=== PATIENT | female | born 1970 | race Caucasian/White ===

== ENCOUNTER → 2018-09-21 | Outpatient (CLI) | payer BC, MEDICARE ==
[2018-09-21 11:10] VITALS: BP 156/96; PULSE 84; RESP 16; TEMP 98.3; BMI 35.9
--- NOTE | 2018-09-21 11:37 | P.GSHP ---
History of Present Illness H&P Date: 09/21/18 Chief Complaint: nodule under right arm Rebecca is a 47-year-old white female who states approximately 5 months ago she noted an area of nodularity under her right arm. She feels that this has increased slightly in size. She has had a bilateral mammogram as well as an ultrasound of the right axilla which did not show anything of concern. These were performed on Aug 05 2018. She does fill discomfort under her right arm which radiates into her upper arm and into her upper outer quadrant of the breast. The patient questioned whether she felt some nodularity in the breast as well however this seems to have dissipated. She does not have any swollen lymph nodes anyplace else not in the cervical area nor in the groin. She has no history of any trauma or infection in the right upper extremity. She has no history of any fever or chills. She has not been treated with any antibiotics. The patient is to 3 cups of coffee in the morning. She drinks pop in the afternoon. She does not smoke she is not exposed to secondhand smoke. She has chocolate occasionally. She does not take any hormones she is not on control pills. The pain is not cyclical Family History: 1. Maternal grandmother: Breast cancer 2. Maternal great aunt: Lung cancer 3. Paternal grandmother: Lung cancer 4. Paternal grandfather: Colon cancer Hormonal History: menarche: 13 bresat fed: yes, first at 25 periods irregular for 6 months BCP: 7 years horomones: none Surgical history: 1. Tubal ligation 2. Appendectomy 3. 28 left knee surgeries, 2 right knee surgeries Medical History: 1. migraines Social History: smoke: none alcohol: social, monthly drugs: none - Constitutional Constitutional: Reports sweats - EENT Comment: wears glasses Ears: deny: decreased hearing, tinnitus Ears, nose, mouth and throat: Reports headache - Breasts Breasts: bilateral: as per HPI - Cardiovascular Cardiovascular: Denies chest pain, Denies shortness of breath - Respiratory Respiratory: Denies cough, Denies 7 - Gastrointestinal Gastrointestinal: Denies abdominal pain, Denies diarrhea, Denies nausea, Denies vomiting - Genitourinary (Female) Genitourinary: Denies dysuria, Denies hematuria - Menstruation Comment: irregular - Musculoskeletal Comment: bilateral knee and lower back arthritis - Integumentary Comment: multiple tattoos tenia - Neurological Neurological: Reports weakness - Psychiatric Psychiatric: Denies anxiety, Denies depression - Endocrine Endocrine: Reports fatigue, Denies weight change - Hematologic/Lymphatic Comment: none - Allergic/Immunologic Allergic/Immunologic: Reports as per HPI Surgical - Exam BMI 35.9 - General obese - Eyes normal ocular movement - ENT no hearing loss, no congestion - Neck no masses, trachea midline - Respiratory normal expansion, normal respiratory effort, clear to percussion, clear to auscultation - Cardiovascular Rhythm: regular Heart Sounds: normal: S1, S2 - Abdomen Abdomen: soft, non tender, no guarding, no rigid, no rebound - Integumentary ? fungal infection between breast - Neurologic no disoriented, no combative - Musculoskeletal uses canes to walk secondary to week knees - Psychiatric oriented to time, oriented to person, oriented to place, speech is normal, memory intact breast exam: Right breast: Multi-positional exam fibrocystic breast changes, no discrete dominant mass or nodule of concern Right axilla: No discrete adenopathy, there is an area of point tenderness which the patient brings to my attention however I'm unable to identify a discrete mass or nodule The patient has multiple tattoos over her right upper extremity extending onto her shoulder but there is no evidence of any infection or recent tattooing Left breast: Multi-positional exam fibrocystic changes, no discrete masses or nodules of concern Left axilla: No adenopathy of concern She has no cervical or groin adenopathy of concern She has no splenomegaly or hepatomegaly Results Mammogram and ultrasound report reviewed Assessment and Plan Assessment: Impression: 1. migraines 2. Right axillary pain/swelling 3. Fibrocystic breast changes 4. Family history of breast cancer 5. Family history cancer 6. Multiple knee surgeries 7. No evidence of malignancy 8. No cervical axillary or groin adenopathy of concern 9. Recent mammogram and ultrasound no evidence of malignancy Plan: 1. I will treat the patient with a course of antibiotics as this may reflect a superficial folliculitis 2. Repeat mammogram in 1 year 3. Follow-up in 2 weeks, if her symptoms have not resolved over request an ultrasound be performed while lying there to evaluate the area that she feels of concern Cc: Dr. Chris Zhao
== END | disposition home or self-care (01) ==
LOC: WWCWWP 10:55
PROVIDERS: ATTEND Surgery
DX: Z53.9 Procedure and treatment not carried out, unspecified reason (principal)

== ENCOUNTER → 2018-10-18 | Outpatient (CLI) | payer BC, MEDICARE ==
[2018-10-18 08:38] VITALS: BP 135/88; PULSE 71; RESP 16; TEMP 98.8; BMI 36.9
--- NOTE | 2018-10-18 09:12 | P.PN ---
Subjective Progress Note Date: 10/18/18 Principal diagnosis: Rebecca is a 47-year-old white female who initially presented on 09-21-18 with a 5 month complaint of increased nodularity in the right axilla. She also at that time was complaining of some discomfort in her right upper arm which extended into the right upper outer quadrant of the breast. The patient had had a mammogram and ultrasound in August 2018 which did not show anything of concern. The patient did not have any discrete mass noted on her examination of September 21. She was however started on an antibiotic. Despite the antibiotic the patient states that she does not think that the area has changed in size. The patient states that she continues to have tenderness which appears to be point tenderness area with radiation into the upper arm and lateral breast. She states she feels an actual nodule. She has had no fever or chills. She has no history of any trauma or infection. She does have tattoos on the right arm been no recent tattoos and no evidence of any infection related to the tattoos. The patient does drink 3 cups of coffee in the morning. She drinks pop in the afternoon. She is not exposed to secondhand smoke, she does not smoke. She has chocolate occasionally. The pain is not cyclical. she is not exposed medical history: 1. Migraines 2. Multiple bilateral knee surgeries Objective - Vital Signs Vital signs: Vital Signs Temp 98.8 F 10/18/18 08:33 Pulse 71 10/18/18 08:33 Resp 16 10/18/18 08:33 BP 135/88 10/18/18 08:33 Pulse Ox 95 10/18/18 08:33 Intake & Output 10/17/18 10/18/18 10/18/18 18:59 06:59 18:59 Weight 103.873 kg - Exam BMI 37 - Constitutional General appearance: Present: obese - EENT Eyes: Present: EOMI ENT: Present: hearing grossly normal - Neck Neck: Present: normal ROM - Respiratory Respiratory: bilateral: CTA - Cardiovascular Rhythm: regular Heart sounds: normal: S1, S2 - Integumentary Integumentary Comment(s): Multiple tattoos in the upper extremities, no evidence of any infection left axilla: Examination of the right axilla reveals no dominant masses or nodules of concern, no adenopathy of concern Examination however reveals tenderness over the latissimus dorsi edge of the muscle Left axilla: No adenopathy of concern, no tenderness Examination of the neck reveals no cervical adenopathy of concern No groin adenopathy of concern Integumentary: Present: normal turgor - Musculoskeletal Musculoskeletal: Present: gait normal - Psychiatric Psychiatric: Present: A&O x's 3, appropriate affect Assessment and Plan Assessment: Impression: 1. Migraines 2. Right axillary pain/swelling believed to be related to muscle/latissimus dorsi 3. Fibrocystic breast changes 4. Family history of breast cancer 6. Multiple knee surgeries 7. Musculoskeletal pain Plan: 1. At this time it is felt that the patient's pain is most likely related to musculoskeletal sources possibly related to walking her dogs and the dogs p ulling 2. No evidence of any cancer 3. The patient will try to decrease the dogs pulling when she walks 4. I discussed the fact that caffeine may exacerbate breast fibrocystic disease the patient will try to decrease her caffeine intake 5. Repeat bilateral axillary ultrasound in 6 months with physician exam at that time 5. Follow up sooner if the pain gets worse when the patient feels that the swelling gets larger Cc: Dr. Chris Zhao
== END | disposition home or self-care (01) ==
LOC: WWCWWP 08:20
PROVIDERS: ATTEND Surgery
DX: Z53.9 Procedure and treatment not carried out, unspecified reason (principal)

== ENCOUNTER → 2019-02-26 | Outpatient (CLI) | payer BC, MEDICARE ==
[~2019-02-26] MED LIST: REGADENOSON 0.4 MG/5 ML SYRINGE IV ONE
--- NOTE | 2019-02-26 10:46 | EST ---
EXERCISE STRESS DATE OF SERVICE: 02/26/2019 AGE: 48 SEX: Female HT: 66" WT: 240 pounds PROTOCOL: Lexiscan Cardiolite STAGE: DURATION OF EXERCISE: HEART RATE REST: 68 BLOOD PRESSURE REST: 110/80 MAXIMUM HEART RATE ACHIEVED: 105 MAXIMUM BLOOD PRESSURE: 120/74 85% MPHR: 100% MPHR: METS: INDICATIONS: Chest pain. CLINICAL INFORMATION: Baseline EKG shows sinus rhythm, normal axis, normal intervals. Patient was given intravenous Lexiscan as per protocol. Did not have chest pain or diagnostic ST-segment depression. CONCLUSIONS: 1. Negative stress test by EKG criteria. 2. Cardiolite portion of the stress test will be reported separately. MMODL / IJN: [id number] /
--- NOTE | 2019-02-26 11:27 | NM ---
EXAMINATION TYPE: NM stress lexiscan cardiolite DATE OF EXAM: 02/26/2019 COMPARISON: NONE HISTORY: Acute angina, chest pain TECHNIQUE: After the intravenous administration of 10.21 mCi Tc 99m Sestamibi - Cardiolite resting S PECT images acquired 50 minutes post injection. The patient received 0.4mg Lexiscan, 25.9 mCi Tc 99m Sestamibi - Stress images obtained [address] injection FINDINGS: Review of stress and rest SPECT images demonstrates no distinct perfusion abnormality. Exam is somew hat technically limited. Gated analysis shows normal wall motion with an estimated left ventricular e jection fraction of 63 %. IMPRESSION: Technically limited exam. No convincing pharmacologically induced left ventricular myocardial ischemi a
== END | disposition home or self-care (01) ==
LOC: RADNMMAIN 07:29
PROVIDERS: ATTEND Family Medicine
DX: I20.9 Angina pectoris, unspecified (principal)
CPT/HCPCS: 93017; 78452; A9500; J2785

== ENCOUNTER → 2019-06-17 | Outpatient (CLI) | payer BC, MEDICARE | END | disposition home or self-care (01) | DX: R22.31 Localized swelling, mass and lump, right upper limb (principal) ==

== ENCOUNTER → 2019-08-16 | Outpatient (CLI) | payer BC, MEDICARE ==
--- NOTE | 2019-06-20 10:53 | P.PN ---
Progress Note - Text Progress Note Date: 06/20/19 I have had a phone conversation with Rebecca regarding her ultrasound results. The patient states she still has some fullness under her arm. However at this time her appointment was canceled secondary to the montemayor virus concerns. She has been rescheduled for 1 month from now.
[2019-08-16 15:48] VITALS: BP 152/89; PULSE 80; RESP 18; TEMP 98.2
--- NOTE | 2019-08-16 16:21 | P.PN ---
Subjective Progress Note Date: 08/16/19 Principal diagnosis: adenopathy Rebecca is a 47-year-old white female who was last seen in October 2018. At that time she stated approximately 5 months prior to that she noted an area of nodularity under her right arm. She felt that this had increased slightly in size. She has had a bilateral mammogram as well as an ultrasound of the right axilla which did not show anything of concern. These were performed on Aug 05 2018. She had recent right axillary ultrasound performed on . This revealed multiple axillary lymph nodes. The largest on the right measured 1.2 cm and on the left measured 2 cm. No cortical thickening was seen in any of the nose. The impression was morphologically normal nonenlarged nonsuspicious bilateral axillary lymph nodes. She states that the area of fullness in her right axilla has not improved for the past year. She states that it feels larger to her and is uncomfortable. She has bilateral upper extremity tattoos but none of them have been had anything down for the past 2 years. She does not complain of adenopathy anyplace else. She does not feel anything of concern under her left arm. She does fill discomfort under her right arm which radiates into her upper arm and into her upper outer quadrant of the breast. The patient questioned whether she felt some nodularity in the breast as well however this seems to have dissipated. She does not have any swollen lymph nodes anyplace else not in the cervical area nor in the groin. She has no history of any trauma or infection in the right upper extremity. She has no history of any fever or chills. She has not been treated with any antibiotics. The patient 2 cups of coffee in the morning. She used to drink pop in the afternoon but has stopped this. She does not smoke she is not exposed to secondhand smoke. She has chocolate occasionally. She does not take any hormones she is not on control pills. The pain is not cyclical Family History: 1. Maternal grandmother: Breast cancer 2. Maternal great aunt: Lung cancer 3. Paternal grandmother: Lung cancer 4. Paternal grandfather: Colon cancer Hormonal History: menarche: 13 breast fed: yes, first at 25 periods irregular for 6 months BCP: 7 years horomones: none Surgical history: 1. Tubal ligation 2. Appendectomy 3. 28 left knee surgeries, 2 right knee surgeries; waiting for another right knee surgery Medical History: 1. migraines Social History: smoke: none alcohol: social, monthly drugs: none - Constitutional Constitutional: Reports sweats - EENT Comment: wears glasses Ears: deny: decreased hearing, tinnitus Ears, nose, mouth and throat: Reports headache - Breasts Breasts: bilateral: as per HPI - Cardiovascular Cardiovascular: Denies chest pain, Denies shortness of breath - Respiratory Respiratory: Denies cough, - Gastrointestinal Gastrointestinal: Denies abdominal pain, Denies diarrhea, Denies nausea, Denies vomiting - Genitourinary (Female) Genitourinary: Denies dysuria, Denies hematuria - Menstruation Comment: irregular - Musculoskeletal Comment: bilateral knee and lower back arthritis - Integumentary Comment: multiple tattoos tenia - Neurological Neurological: Reports weakness - Psychiatric Psychiatric: Denies anxiety, Denies depression - Endocrine Endocrine: Reports fatigue, Denies weight change - Hematologic/Lymphatic Comment: as per HPI - Allergic/Immunologic Allergic/Immunologic: Reports as per HPI Objective - Vital Signs Vital signs: Vital Signs Temp 98.2 F 08/16/19 15:45 Pulse 80 08/16/19 15:45 Resp 18 08/16/19 15:45 BP 152/89 08/16/19 15:45 Pulse Ox 98 08/16/19 15:45 Intake & Output 08/15/19 08/16/19 08/16/19 18:59 06:59 18:59 Weight 104.326 kg - Exam BMI 36.6 - Constitutional General appearance: Present: cooperative, obese - EENT Eyes: Present: EOMI ENT: Present: hearing grossly normal - Neck Neck: Present: normal ROM - Respiratory Respiratory: bilateral: CTA - Cardiovascular Rhythm: regular Heart sounds: normal: S1, S2 - Gastrointestinal General gastrointestinal: Present: normal bowel sounds, soft - Integumentary Integumentary: Present: normal - Musculoskeletal Musculoskeletal: Present: gait normal - Psychiatric Psychiatric: Present: A&O x's 3, appropriate affect, intact judgment & insight - Additional findings Additional findings: breast exam: BRA 40C inspection: No nipple inversion, ptosis grade 2, tattoo over the left chest Palpation: Right breast: Multiple position with exam. Fibrocystic changes, no dominant masses or nodules of concern Right axilla: Shoddy adenopathy no enlarged pathologic nodes palpable left breast: Multiple positional exam fibrocystic changes, no dominant masses or nodules of concern Left axilla: No adenopathy of concern noted, shoddy adenopathy Service cervical exam: No cervical adenopathy of concern Supraclavicular exam: No supraclavicular adenopathy of concern Groin exam: No groin adenopathy of concern Liver and spleen are not enlarged Assessment and Plan Assessment: Impression: 1. Fullness right breast upper outer quadrant with bilateral shotty axillary adenopathy, no dominate masses 2. Mastodynia right breast 3. Bilateral upper extremity tattoos 4. Migraines 5. Patient's last bilateral mammogram was 08/09/2018 Plan: 1. Bilateral breast mammogram 2. Appointment with medical oncology to evaluate adenopathy 3. Follow-up. After mammogram and medical oncology appointment 4. At this time there is nothing specific which would warrant interventional open biopsy 5. Mastodynia in the right breast is most likely related to fibrocystic breast changes No discrete masses noted in the right breast. We are going to obtain a bilateral mammogram. Her last mammogram was in August 2018, this will be rescheduled. The pain in the right breast is most likely was related to fibrocystic breast changes. We have talked about causes of this including caffeine. We also have talked about primrose oil which may help decrease the discomfort. The adenopathy will be further evaluated on her mammogram, and we will request medical oncology to evaluate for any pathology within my be concerned about which would warrant a biopsy. The present time however no biopsy of the lymph node was being recommended. Cc: Dr. Chris Zhao The patient was given a booklet entitled; Solving the Mystery of breast pain by Altagracia Dunne. encounter 30 minutes, > 50% of time in planning and counselling Time with Patient: Greater than 30
== END ==
LOC: WWCWWP 15:35
PROVIDERS: ATTEND Surgery
DX: Z53.9 Procedure and treatment not carried out, unspecified reason (principal)

== ENCOUNTER → 2022-10-18 | Outpatient (CLI) | payer BC, MEDICARE ==
--- NOTE | 2022-10-20 13:30 | MR ---
EXAMINATION TYPE: MR angio head wo con DATE OF EXAM: 10/18/2022 7:12 PM CLINICAL INDICATION:Female, 51 years old with history of I72.8; Evaluate for aneurysm COMPARISON: MRI head same day. Technical: 3-D [id number] Axial with MIP reconstruction created on a separate workstation.. IV Contrast: None Findings: Vertebral arteries: The vertebral arteries are patent. Vertebral arteries are: Codominant. Basilar artery: There our 2 vessels that originate off the basilar artery which closely approximates the right trigeminal nerve series 301 image 62. One of these vessels likely representing the right love perior cerebellar artery. The basilar artery is intact. The basilar artery bifurcation is normal. Internal Carotid arteries: The cervical, petrous, cavernous and supraclinoid segments are normal. EAGLE: Patent with no evidence of aneurysm. ACOM: Present without evidence of aneurysm. MCA: Patent with no evidence of aneurysm. ASSEMBLER BILLIARD TABLE: Patent with no evidence of aneurysm. PCOM: Hypoplastic bilaterally. IMPRESSION: 1. There are 2 vessels that originate off the basilar artery which closely approximates the right tr igeminal nerve. No aneurysm visualized. 2. No evidence of aneurysm or significant stenosis.
--- NOTE | 2022-10-20 13:30 | MR ---
EXAMINATION TYPE: MR brain wo/w con DATE OF EXAM: 10/18/2022 7:37 PM CLINICAL INDICATION:Female, 51 years old with history of I72.8; Severe facial pain Rt side, Trigemina l nerve 2 and 3 COMPARISON: Angiogram head same day. TECHNIQUE: Multi planar, multi sequence imaging was performed through the brain including: T1, T2, In version recovery, susceptibility weighted imaging and gradient echo imaging and Diffusion weighted im aging. The patient was then given intravenous contrast and multi planar, T1 fat-saturation images wer e obtained. IV Contrast: 11.5 cc Gadavist FINDINGS: There is a vessel that closely approximates the right trigeminal nerve series 802 image 16 axial imag ing and on series 801 image 99 and on series 3 image 34. This is not seen on the left side. The kuhn-white junctions, ventricular system, basal cisterns appear unremarkable. Diffusion-weighted imaging shows no evidence of restricted diffusion to suggest acute/subacute infarct. Intracranial art erial flow voids are maintained. Midline structures show no abnormality. The susceptibility weighted images do not reveal any evidence for micro-hemorrhage. After administration of gadolinium, no abnorm al enhancement is seen. The bone marrow signal is within normal limits. Paranasal sinuses and mastoid air cells: No significant paranasal sinus disease. Visualized orbits: Orbital contents are intact. IMPRESSION: 1. Right trigeminal nerve with vessels closely approximating at just after its takeoff near the brai n stem. As seen on same day angiogram. There are 2 vessels on the angiogram that closely approximates the right trigeminal nerve one of which is likely the right superior cerebellar artery. 2. No evidence of intracranial mass, acute/subacute infarct, or abnormal enhancement.
== END | disposition home or self-care (01) ==
LOC: RADMRIMAIN 18:00
PROVIDERS: ATTEND Psychiatry & Neurology Neurology
DX: I72.8 Aneurysm of other specified arteries (principal)
CPT/HCPCS: 70544; 70553; A9585